=== PATIENT | male | born 1975 | race Caucasian/White ===

== ENCOUNTER 2021-01-23 19:21 | Emergency (ER) | payer OTHER ==
[2021-01-23 20:40] LABS: HEMOGLOBIN 16.4 gm/dl (14.0-17.5); RED BLOOD COUNT 5.36 M/UL (4.20-5.50); WHITE BLOOD COUNT 8.4 K/UL (4.5-11.0)
[2021-01-23 20:52] LABS: BUN/CREATININE RATIO 11 (0-10)
== END 2021-01-24 00:01 | disposition home or self-care (01) ==
LOC: ER1 19:21
PROVIDERS: Physician Assistant
DX: K22.2 Esophageal obstruction (principal); K20.0 Eosinophilic esophagitis; M79.5 Residual foreign body in soft tissue; Z20.822 Contact with and (suspected) exposure to COVID-19
CPT/HCPCS: 71045; 80053; 85025; 96374; 99152; 99283; J2250; J2405; J3010; J7040; U0002

== ENCOUNTER → 2021-02-15 | Day surgery (SDC) | payer OTHER | END | disposition home or self-care (01) | LOC: OR 08:06 | DX: K20.0 Eosinophilic esophagitis (principal); K22.2 Esophageal obstruction; K29.50 Unspecified chronic gastritis without bleeding; B96.81 Helicobacter pylori [H. pylori] as the cause of diseases classified elsewhere; K21.9 Gastro-esophageal reflux disease without esophagitis | CPT/HCPCS: J2001; J2704; J7040 ==